=== PATIENT | male | born 1940 | race Caucasian/White ===

== ENCOUNTER → 2017-01-22 | Outpatient (CLI) | payer OTHER | LOC: FIMAGING 10:06 | PROVIDERS: ATTEND Orthopaedic Surgery | PROC: CP1D1ZZ Planar Nuclear Medicine Imaging of Left Lower Extremity using Technetium 99m (Tc-99m) (ICD-10-PCS; principal; 2017-01-22) | DX: Z96.652 Presence of left artificial knee joint (principal) | CPT/HCPCS: 78315; A9503 ==

== ENCOUNTER 2017-05-16 13:50 | Emergency (ER) | payer OTHER ==
[2017-05-16 13:58] VITALS: BP 167/86; PULSE 65; RESP 16; TEMP 98.1; O2SAT 95
--- NOTE | 2017-05-16 14:11 | EDPHY ---
H & P Stated Complaint: hiccups Time Seen by Provider: 05/16/17 13:59 HPI/ROS: CHIEF COMPLAINT: Hiccups HISTORY OF PRESENT ILLNESS: The patient presents the ED with a 1 day history of intermittent intractable hiccups. The patient denies any abdominal pain, nausea, vomiting. He denies any history of fever, cough or congestion. The patient denies any history of surgery. The patient denies any additional complaints. He does take medication as needed for hypertension. REVIEW OF SYSTEMS: A comprehensive 10 point review of systems is otherwise negative aside from elements mentioned in the history of present illness. Source: Patient Exam Limitations: No limitations - Personal History Current Tetanus/Diphtheria Vaccine: Yes Tetanus Vaccine Date: 2016 - Medical/Surgical History Hx Asthma: No Hx Chronic Respiratory Disease: No Hx Diabetes: No Hx Cardiac Disease: Yes Hx Renal Disease: No Hx Cirrhosis: No Hx Alcoholism: No Hx HIV/AIDS: No Hx Splenectomy or Spleen Trauma: No Other PMH: HTN, FACIAL NEURALGIA, foot operations, skin CA, hx falls, hernia repair, KNEE REPAIR - Social History Smoking Status: Never smoked - Physical Exam Exam: General Appearance: Alert, no distress Eyes: Pupils equal and round no pallor or injection Respiratory: There are no retractions, lungs are clear to auscultation Cardiovascular: Regular rate and rhythm Gastrointestinal: Abdomen is soft and nontender, no masses, bowel sounds normal Neurological: A&O, normal motor function, normal sensory exam, normal cranial nerves Skin: Warm and dry, no rashes Constitutional: Initial Vital Signs Temperature (C) 36.7 C 05/16/17 13:55 Heart Rate 65 05/16/17 13:55 Respiratory Rate 16 05/16/17 13:55 Blood Pressure 167/86 H 05/16/17 13:55 O2 Sat (%) 95 05/16/17 13:55 O2 Delivery Mode Room Air Allergies/Adverse Reactions: No Known Allergies Allergy (Unverified 04/27/16 20:27) Home Medications: Medication Instructions Recorded Herbals/Supplements -Info Only 1 ea PO DAILY 11/03/14 Losartan/Hydrochlorothiazide 1 tab PO DAILY 11/03/14 [Losartan-Hctz 100-25 mg Tab] amLODIPine BESYLATE [Norvasc 10 mg 10 mg PO DAILY 11/03/14 (*)] Amoxicillin [AMOXICILLIN] 05/16/17 Epitol 05/16/17 chlorproMAZINE HCL [Chlorpromazine 25 mg PO TID PRN #21 tablet 05/16/17 HCl] Medical Decision Making ED Course/Re-evaluation: The patient will be given a prescription for chlorpromazine 25 mg three times daily to use up to 7 days for ongoing hiccups. The patient is advised to return to the ED for any worsening symptoms, vomiting, the development of pain or other concerns. Departure - Departure Disposition: Home, Routine, Self-Care Clinical Impression: Intractable hiccups Condition: Good Instructions: Hiccups (ED) Additional Instructions: 1. Medication as prescribed. 2. Return to the ED for severe pain, vomiting, markedly worsening symptoms or other concerns Referrals: Jalen Henry MD [Primary Care Provider] - As per Instructions
== END 2017-05-16 14:15 | disposition home or self-care (01) ==
DX: R06.6 Hiccough (principal); I10 Essential (primary) hypertension; Z85.828 Personal history of other malignant neoplasm of skin

== ENCOUNTER → 2017-07-26 | Outpatient (CLI) | payer OTHER ==
[~2017-07-26] MED LIST: GADOBUTROL 10 ML VIAL IVP ONE
== END ==
LOC: FIMAGING 12:03
PROVIDERS: ATTEND Physician Assistant Medical
DX: G31.1 Senile degeneration of brain, not elsewhere classified (principal); R90.82 White matter disease, unspecified; Z85.828 Personal history of other malignant neoplasm of skin
CPT/HCPCS: 70553; A9585

== ENCOUNTER → 2017-10-07 | Outpatient (CLI) | payer OTHER | LOC: BMCIMAGING 10:41 | PROVIDERS: ATTEND Internal Medicine | DX: R53.83 Other fatigue (principal) ==

== ENCOUNTER 2018-11-28 09:00 | Inpatient (IN) | payer OTHER | END 2018-12-01 12:19 | LOC: F3N 09:00 ==